=== PATIENT | male | born 1970 | race Caucasian/White ===

== ENCOUNTER 2022-02-28 16:52 | Inpatient (IN) ==
[2022-02-28] MEDS ORDERED: Melatonin 3 MG TABLET PO PRN (21:52)
[2022-02-28] MEDS ORDERED: Naloxone 0.4 MG/ML INJ IVP PRN (21:52)
[2022-02-28] MEDS ORDERED: 0.9 % Sodium Chloride 1,000 ML IVC SCH (22:45)
[2022-02-28] MEDS ORDERED: 0.9 % Sodium Chloride 500 ML IVC ONE (23:23)
[2022-02-28] MEDS: Piperacillin/Tazobactam 3.375 GM in 0.9 % Sodium Chloride Mini Bag 100 ML IVPB SCH (23:29)
[2022-03-01 05:28] LABS: White Blood Count 7.5 K/mcL (4.3-11.1)
[2022-03-01 05:29] LABS: Basophils % 0.1 %; Eosinophils % 0.3 %; Hematocrit 33.1 % (37.5-50.1); Hemoglobin 10.8 g/dL (12.9-16.9); Immature Granulocytes % 0.4 % (0-4); Lymphocytes # 0.9 K/mcL (0.6-4.6); Lymphocytes % 11.6 %; Mean Corpuscular HGB Conc 32.6 g/dL (31.6-35.5); Mean Corpuscular Hemoglobin 31.1 pg (28.0-33.3); Mean Corpuscular Volume 95.4 fL (83.0-100.0); Mean Platelet Volume 8.8 fL (9.4-12.4); Monocytes # 0.7 K/mcL (0.0-1.3); Monocytes % 9.7 %; Neutrophils # 5.9 K/mcL (1.6-8.9); Platelet Count 291 K/mcL (140-400); Red Blood Count 3.47 M/mcL (4.19-5.50); Red Cell Distribution Width 13.1 % (11.5-14.5); Segmented Neutrophils % 77.9 %
[2022-03-01] MEDS: Pantoprazole 40 MG VIAL IVP SCH (05:33)
[2022-03-01 05:53] LABS: Alanine Aminotransferase 7 Units/L (7-52); Albumin 3.2 g/dL (3.5-5.7); Albumin/Globulin Ratio 1.3 (1.1-2.2); Alkaline Phosphatase 59 Units/L (34-104); Aspartate Amino Transferase 10 Units/L (13-39); BUN/Creatinine Ratio 10 (6-26); Bilirubin,Total 0.5 mg/dL (0.3-1.0); Blood Urea Nitrogen 8 mg/dL (6-20); Calcium 7.8 mg/dL (8.6-10.3); Carbon Dioxide 21 mEq/L (23-29); Chloride 109 mEq/L (98-107); Globulin 2.5 g/dL (2.4-3.5); Glucose 89 mg/dL (70-105); Magnesium 1.9 mg/dL (1.6-2.6); Osmolality,Calculated 284 (280-300); Phosphorous 2.9 mg/dL (2.7-4.5); Potassium 3.6 mEq/L (3.5-5.1); Sodium 138 mEq/L (136-145); Total Protein 5.7 g/dL (6.4-8.9); eGFR For African Americans > 60 (> 60); eGFR For Non-African Americans > 60 (> 60)
[2022-03-01] MEDS: Piperacillin/Tazobactam 3.375 GM in 0.9 % Sodium Chloride Mini Bag 100 ML IVPB SCH ×3 (09:11→23:51)
[2022-03-01] MEDS: Ondansetron ODT 4 MG TAB.RAPDIS SL PRN (11:07)
[2022-03-02] MEDS: Pantoprazole 40 MG VIAL IVP SCH (05:01)
[2022-03-02 06:20] LABS: Basophils % 0.1 %; Eosinophils % 0.2 %; Hemoglobin 11.7 g/dL (12.9-16.9); Immature Granulocytes % 0.4 % (0-4); Lymphocytes # 0.9 K/mcL (0.6-4.6); Lymphocytes % 9.9 %; Mean Corpuscular HGB Conc 32.5 g/dL (31.6-35.5); Mean Corpuscular Volume 95.5 fL (83.0-100.0); Mean Platelet Volume 8.8 fL (9.4-12.4); Monocytes # 1.2 K/mcL (0.0-1.3); Monocytes % 12.2 %; Neutrophils # 7.3 K/mcL (1.6-8.9); Platelet Count 318 K/mcL (140-400); Red Blood Count 3.77 M/mcL (4.19-5.50); Red Cell Distribution Width 12.9 % (11.5-14.5); Segmented Neutrophils % 77.2 %; White Blood Count 9.4 K/mcL (4.3-11.1)
[2022-03-02 06:37] LABS: BUN/Creatinine Ratio 11 (6-26); Blood Urea Nitrogen 8 mg/dL (6-20); Calcium 8.5 mg/dL (8.6-10.3); Carbon Dioxide 22 mEq/L (23-29); Chloride 102 mEq/L (98-107); Glucose 82 mg/dL (70-105); Osmolality,Calculated 273 (280-300); Potassium 3.6 mEq/L (3.5-5.1); Sodium 133 mEq/L (136-145); eGFR For African Americans > 60 (> 60); eGFR For Non-African Americans > 60 (> 60)
[2022-03-02] MEDS: Piperacillin/Tazobactam 3.375 GM in 0.9 % Sodium Chloride Mini Bag 100 ML IVPB SCH ×2 (08:54→15:27)
[2022-03-02] MEDS: Ondansetron ODT 4 MG TAB.RAPDIS SL PRN (17:32)
[2022-03-03] MEDS: Piperacillin/Tazobactam 3.375 GM in 0.9 % Sodium Chloride Mini Bag 100 ML IVPB SCH (00:01)
[2022-03-03 03:26] VITALS: O2SAT 96
[2022-03-03] MEDS: Pantoprazole 40 MG VIAL IVP SCH (05:14)
[2022-03-03 07:49] VITALS: BP 114/72; PULSE 73; TEMP 97.4
== END 2022-03-03 10:30 | disposition home or self-care (01) | DRG 392 ==
LOC: 3ANU
PROVIDERS: ADMIT Student in an Organized Health Care Education/Training Program; ATTEND Student in an Organized Health Care Education/Training Program

== ENCOUNTER 2022-03-18 08:21 | Inpatient (IN) ==
[2022-03-18] MEDS ORDERED: Naloxone 0.4 MG/ML INJ IVP PRN (10:47)
[2022-03-18] MEDS: Ondansetron 4 MG/2 ML VIAL IVP PRN ×2 (11:16→17:04)
[2022-03-18] MEDS ORDERED: Metoclopramide 10 MG/2 ML VIAL IVP PRN ×2 (12:22→13:11)
[2022-03-18] MEDS ORDERED: *HR* HYDROmorphone (PF) 1 MG/ML SYRINGE IVP PRN (12:22)
[2022-03-18] MEDS: Metoprolol XL (24 HR) Succ 25 MG TAB.ER.24H PO SCH (14:13)
[2022-03-18] MEDS ORDERED: Fluconazole 400 MG/200 ML 400 MG/200 ML BAG IVPB SCH (16:00)
[2022-03-18] MEDS ORDERED: Morphine PCA 30 MG/ 30 ML 30 ML PCA.VIAL IVC PRN (16:22)
[2022-03-18] MEDS: 0.9 % Sodium Chloride 1,000 ML IVC SCH (17:06)
[2022-03-18] MEDS: Piperacillin/Tazobactam 3.375 GM in 0.9 % Sodium Chloride Mini Bag 100 ML IVPB SCH (17:25)
[2022-03-18] MEDS: Pantoprazole 40 MG VIAL IVP SCH (17:26)
[2022-03-18] MEDS: Gabapentin 300 MG CAPSULE PO SCH ×2 (17:39→21:03)
[2022-03-18] MEDS ORDERED: Ondansetron 4 MG/2 ML VIAL IVP ONE (20:31)
[2022-03-18] MEDS: Budesonide/Formoterol 80/4.5 1 PUFF INH IH SCH (22:33)
[2022-03-19] MEDS: 0.9 % Sodium Chloride 1,000 ML IVC SCH ×4 (00:36→23:29)
[2022-03-19] MEDS: Piperacillin/Tazobactam 3.375 GM in 0.9 % Sodium Chloride Mini Bag 100 ML IVPB SCH ×4 (00:36→23:31)
[2022-03-19] MEDS: Ondansetron 4 MG/2 ML VIAL IVP PRN (00:44)
[2022-03-19 02:26] LABS: Hematocrit 39.1 % (37.5-50.1); Hemoglobin 12.7 g/dL (12.9-16.9); Mean Corpuscular HGB Conc 32.5 g/dL (31.6-35.5); Mean Corpuscular Hemoglobin 30.8 pg (28.0-33.3); Mean Corpuscular Volume 94.7 fL (83.0-100.0); Mean Platelet Volume 9.2 fL (9.4-12.4); Platelet Count 374 K/mcL (140-400); Red Blood Count 4.13 M/mcL (4.19-5.50); Red Cell Distribution Width 14.1 % (11.5-14.5)
[2022-03-19 02:38] LABS: BUN/Creatinine Ratio 27 (6-26); Blood Urea Nitrogen 18 mg/dL (6-20); Carbon Dioxide 17 mEq/L (23-29); Chloride 109 mEq/L (98-107); Glucose 114 mg/dL (70-105); Magnesium 2.2 mg/dL (1.6-2.6); Osmolality,Calculated 289 (280-300); Potassium 4.2 mEq/L (3.5-5.1); Sodium 138 mEq/L (136-145); eGFR For African Americans > 60 (> 60); eGFR For Non-African Americans > 60 (> 60)
[2022-03-19 03:08] LABS: Calcium 8.5 mg/dL (8.6-10.3)
[2022-03-19] MEDS: Pantoprazole 40 MG VIAL IVP SCH ×2 (05:42→17:45)
[2022-03-19] MEDS: Budesonide/Formoterol 80/4.5 1 PUFF INH IH SCH ×2 (07:10→21:09)
[2022-03-19] MEDS ORDERED: Lidocaine HCL 4 ML Topical Solution (Laryng-O-Jet Kit Sterile Pak) TP ONE (07:18)
[2022-03-19] MEDS ORDERED: Ondansetron 4 MG/2 ML VIAL ONE (07:18)
[2022-03-19] MEDS ORDERED: *HR* Rocuronium Bromide 50 MG/5 ML VIAL ONE ×2 (07:18→10:04)
[2022-03-19] MEDS ORDERED: *HR* Succinylcholine 200 MG/10 ML VIAL IVP ONE (07:18)
[2022-03-19] MEDS ORDERED: *HR* Midazolam HCl 2 MG/2 ML VIAL ONE (07:19)
[2022-03-19] MEDS ORDERED: *HR* Propofol 200 MG/20 ML VIAL IVP ONE (07:19)
[2022-03-19] MEDS ORDERED: *HR* FentaNYL (PF) 100 MCG/2 ML VIAL ONE (07:19)
[2022-03-19] MEDS: Gabapentin 300 MG CAPSULE PO SCH ×3 (08:18→20:35)
[2022-03-19] MEDS: Metoprolol XL (24 HR) Succ 25 MG TAB.ER.24H PO SCH (08:18)
[2022-03-19] MEDS ORDERED: Albumin Human 5% 12.5 GM/250 ML IV.SOLN ONE (09:19)
[2022-03-19] MEDS ORDERED: Acetaminophen IV 1,000 MG/100 ML BAG IVPB ONE (09:24)
[2022-03-19] MEDS ORDERED: *HR* HYDROMORPHONE 2 MG/ML VIAL ONE (09:49)
[2022-03-19] MEDS ORDERED: Lidocaine -MPF 2% 2 ML VIAL ONE (10:04)
[2022-03-19] MEDS ORDERED: Sugammadex Sodium 200 MG/2 ML VIAL IV ONE (11:01)
[2022-03-19] MEDS: *HR* HYDROmorphone PF 0.5 MG/0.5 ML SYRINGE IVP PRN ×2 (12:37→12:47)
[2022-03-19] MEDS ORDERED: Naloxone 0.4 MG/ML INJ IVP PRN (14:02)
[2022-03-19] MEDS ORDERED: Morphine PCA 30 MG/ 30 ML 30 ML PCA.VIAL IVC PRN (14:02)
[2022-03-19] MEDS ORDERED: Metoclopramide 10 MG/2 ML VIAL IVP PRN (14:02)
[2022-03-19] MEDS ORDERED: Ondansetron 4 MG/2 ML VIAL IVP PRN (14:02)
[2022-03-19] MEDS: Fluconazole 400 MG/200 ML 400 MG/200 ML BAG IVPB SCH (15:03)
[2022-03-19] MEDS: *HR* Heparin 5,000 UNIT/ML VIAL SQ SCH (17:45)
[2022-03-19] MEDS: Ketorolac 30 MG/ML VIAL IVP SCH ×2 (17:45→23:30)
[2022-03-20 01:49] LABS: Hematocrit 33.7 % (37.5-50.1); Immature Granulocytes % 0.3 % (0-4); Lymphocytes # 0.4 K/mcL (0.6-4.6); Lymphocytes % 4.1 %; Mean Corpuscular HGB Conc 31.8 g/dL (31.6-35.5); Mean Corpuscular Hemoglobin 30.8 pg (28.0-33.3); Mean Corpuscular Volume 97.1 fL (83.0-100.0); Mean Platelet Volume 9.3 fL (9.4-12.4); Monocytes # 0.7 K/mcL (0.0-1.3); Monocytes % 7.4 %; Neutrophils # 8.6 K/mcL (1.6-8.9); Platelet Count 268 K/mcL (140-400); Red Blood Count 3.47 M/mcL (4.19-5.50); Red Cell Distribution Width 14.2 % (11.5-14.5); Segmented Neutrophils % 88.2 %; White Blood Count 9.8 K/mcL (4.3-11.1)
[2022-03-20 01:50] LABS: Hemoglobin 10.7 g/dL (12.9-16.9)
[2022-03-20 02:11] LABS: BUN/Creatinine Ratio 19 (6-26); Blood Urea Nitrogen 11 mg/dL (6-20); Calcium 7.8 mg/dL (8.6-10.3); Carbon Dioxide 21 mEq/L (23-29); Chloride 108 mEq/L (98-107); Glucose 146 mg/dL (70-105); Osmolality,Calculated 288 (280-300); Potassium 4.2 mEq/L (3.5-5.1); Sodium 138 mEq/L (136-145); eGFR For African Americans > 60 (> 60); eGFR For Non-African Americans > 60 (> 60)
[2022-03-20] MEDS: Pantoprazole 40 MG VIAL IVP SCH ×2 (05:26→17:55)
[2022-03-20] MEDS: Ketorolac 30 MG/ML VIAL IVP SCH ×2 (05:27→12:47)
[2022-03-20] MEDS: *HR* Heparin 5,000 UNIT/ML VIAL SQ SCH ×2 (05:28→17:54)
[2022-03-20] MEDS: Budesonide/Formoterol 80/4.5 1 PUFF INH IH SCH ×2 (07:17→20:37)
[2022-03-20] MEDS: Metoprolol XL (24 HR) Succ 25 MG TAB.ER.24H PO SCH (07:52)
[2022-03-20] MEDS: Gabapentin 300 MG CAPSULE PO SCH ×3 (07:52→20:09)
[2022-03-20] MEDS: Piperacillin/Tazobactam 3.375 GM in 0.9 % Sodium Chloride Mini Bag 100 ML IVPB SCH ×3 (07:53→23:08)
[2022-03-20] MEDS: 0.9 % Sodium Chloride 1,000 ML IVC SCH ×3 (07:53→23:18)
[2022-03-20] MEDS: Acetaminophen IV 1,000 MG/100 ML BAG IVPB SCH ×2 (12:47→18:01)
[2022-03-20] MEDS: Fluconazole 400 MG/200 ML 400 MG/200 ML BAG IVPB SCH (15:42)
[2022-03-20] MEDS ORDERED: Simethicone 80 MG TAB.CHEW PO ONE (17:18)
[2022-03-21] MEDS: Acetaminophen IV 1,000 MG/100 ML BAG IVPB SCH ×4 (00:23→17:27)
[2022-03-21] MEDS: *HR* Heparin 5,000 UNIT/ML VIAL SQ SCH ×2 (05:57→10:52)
[2022-03-21] MEDS: Pantoprazole 40 MG VIAL IVP SCH (05:57)
[2022-03-21] MEDS: Budesonide/Formoterol 80/4.5 1 PUFF INH IH SCH ×2 (07:53→22:47)
[2022-03-21] MEDS: Piperacillin/Tazobactam 3.375 GM in 0.9 % Sodium Chloride Mini Bag 100 ML IVPB SCH ×2 (08:00→15:56)
[2022-03-21] MEDS: Gabapentin 300 MG CAPSULE PO SCH ×3 (08:01→21:11)
[2022-03-21] MEDS: Metoprolol XL (24 HR) Succ 25 MG TAB.ER.24H PO SCH (08:01)
[2022-03-21] MEDS: 0.9 % Sodium Chloride 1,000 ML IVC SCH ×3 (08:02→22:23)
[2022-03-21 08:59] LABS: Basophils % 0.1 %; Hematocrit 32.3 % (37.5-50.1); Hemoglobin 9.9 g/dL (12.9-16.9); Immature Granulocytes % 0.9 % (0-4); Lymphocytes # 0.7 K/mcL (0.6-4.6); Lymphocytes % 9.3 %; Mean Corpuscular HGB Conc 30.7 g/dL (31.6-35.5); Mean Corpuscular Hemoglobin 31.1 pg (28.0-33.3); Mean Corpuscular Volume 101.6 fL (83.0-100.0); Mean Platelet Volume 9.3 fL (9.4-12.4); Monocytes # 0.7 K/mcL (0.0-1.3); Monocytes % 8.9 %; Neutrophils # 6.1 K/mcL (1.6-8.9); Platelet Count 244 K/mcL (140-400); Red Blood Count 3.18 M/mcL (4.19-5.50); Red Cell Distribution Width 14.2 % (11.5-14.5); Segmented Neutrophils % 80.8 %; White Blood Count 7.5 K/mcL (4.3-11.1)
[2022-03-21 09:41] LABS: BUN/Creatinine Ratio 20 (6-26); Blood Urea Nitrogen 13 mg/dL (6-20); Calcium 7.8 mg/dL (8.6-10.3); Carbon Dioxide 16 mEq/L (23-29); Chloride 112 mEq/L (98-107); Glucose 97 mg/dL (70-105); Osmolality,Calculated 288 (280-300); Potassium 4.1 mEq/L (3.5-5.1); Sodium 139 mEq/L (136-145); eGFR For African Americans > 60 (> 60); eGFR For Non-African Americans > 60 (> 60)
[2022-03-21] MEDS ORDERED: Lidocaine -MPF 2% 2 ML VIAL ONE (10:09)
[2022-03-21] MEDS: Ketorolac 30 MG/ML VIAL IVP SCH ×2 (11:36→17:27)
[2022-03-21] MEDS: Fluconazole 400 MG/200 ML 400 MG/200 ML BAG IVPB SCH (15:58)
[2022-03-21] MEDS: methocarbamoL 500 MG TABLET PO SCH (16:00)
[2022-03-21] MEDS ORDERED: Chloraseptic Spray 177 ML BOTTLE MM PRN (16:11)
[2022-03-22] MEDS: Acetaminophen IV 1,000 MG/100 ML BAG IVPB SCH ×4 (00:13→18:21)
[2022-03-22] MEDS: Ketorolac 30 MG/ML VIAL IVP SCH ×4 (00:14→18:20)
[2022-03-22] MEDS: methocarbamoL 500 MG TABLET PO SCH ×3 (00:14→16:27)
[2022-03-22] MEDS: Piperacillin/Tazobactam 3.375 GM in 0.9 % Sodium Chloride Mini Bag 100 ML IVPB SCH ×3 (00:15→16:27)
[2022-03-22] MEDS ORDERED: D5% in Water 1,000 ML IVC PRN (00:20)
[2022-03-22] MEDS ORDERED: Dextrose Gel 15 GM/37.5 ML TUBE PO PRN ×2 (00:20)
[2022-03-22] MEDS: *HR* Dextrose 50 % in Water (Syg) 50 ML SYRINGE IVP PRN ×2 (00:31→06:34)
[2022-03-22] MEDS: 0.9 % Sodium Chloride 1,000 ML IVC SCH ×2 (04:41→08:15)
[2022-03-22] MEDS: *HR* Heparin 5,000 UNIT/ML VIAL SQ SCH ×2 (05:33→18:21)
[2022-03-22] MEDS: Budesonide/Formoterol 80/4.5 1 PUFF INH IH SCH ×2 (07:52→21:09)
[2022-03-22] MEDS: Metoprolol XL (24 HR) Succ 25 MG TAB.ER.24H PO SCH (08:11)
[2022-03-22] MEDS: Gabapentin 300 MG CAPSULE PO SCH ×3 (08:11→20:56)
[2022-03-22] MEDS: Pantoprazole 40 MG VIAL IVP SCH (08:12)
[2022-03-22 09:42] LABS: Basophils % 0.2 %; Eosinophils % 0.5 %; Hematocrit 30.8 % (37.5-50.1); Hemoglobin 9.7 g/dL (12.9-16.9); Immature Granulocytes % 0.5 % (0-4); Lymphocytes # 0.9 K/mcL (0.6-4.6); Lymphocytes % 14.8 %; Mean Corpuscular HGB Conc 31.5 g/dL (31.6-35.5); Mean Corpuscular Hemoglobin 30.2 pg (28.0-33.3); Mean Platelet Volume 9.1 fL (9.4-12.4); Monocytes # 0.3 K/mcL (0.0-1.3); Platelet Count 302 K/mcL (140-400); Red Blood Count 3.21 M/mcL (4.19-5.50); Red Cell Distribution Width 14.1 % (11.5-14.5); White Blood Count 6.3 K/mcL (4.3-11.1)
[2022-03-22 09:55] LABS: BUN/Creatinine Ratio 17 (6-26); Blood Urea Nitrogen 10 mg/dL (6-20); Carbon Dioxide 22 mEq/L (23-29); Chloride 110 mEq/L (98-107); Glucose 91 mg/dL (70-105); Osmolality,Calculated 287 (280-300); Potassium 3.6 mEq/L (3.5-5.1); Sodium 139 mEq/L (136-145); eGFR For African Americans > 60 (> 60); eGFR For Non-African Americans > 60 (> 60)
[2022-03-22] MEDS ORDERED: 0.9 % Sodium Chloride 1,000 ML IVC SCH (14:45)
[2022-03-22] MEDS: Fluconazole 400 MG/200 ML 400 MG/200 ML BAG IVPB SCH (16:27)
[2022-03-23] MEDS: Ketorolac 30 MG/ML VIAL IVP SCH ×3 (00:27→13:34)
[2022-03-23] MEDS: methocarbamoL 500 MG TABLET PO SCH ×2 (00:28→08:08)
[2022-03-23] MEDS: Acetaminophen IV 1,000 MG/100 ML BAG IVPB SCH ×3 (00:29→13:34)
[2022-03-23] MEDS: Piperacillin/Tazobactam 3.375 GM in 0.9 % Sodium Chloride Mini Bag 100 ML IVPB SCH ×2 (00:29→08:06)
[2022-03-23 06:02] LABS: Basophils % 0.1 %; Eosinophils # 0.1 K/mcL (0.0-0.6); Hematocrit 30.5 % (37.5-50.1); Hemoglobin 9.7 g/dL (12.9-16.9); Immature Granulocytes % 0.8 % (0-4); Lymphocytes # 0.8 K/mcL (0.6-4.6); Mean Corpuscular HGB Conc 31.8 g/dL (31.6-35.5); Mean Corpuscular Hemoglobin 30.4 pg (28.0-33.3); Mean Corpuscular Volume 95.6 fL (83.0-100.0); Mean Platelet Volume 9.1 fL (9.4-12.4); Monocytes # 0.3 K/mcL (0.0-1.3); Monocytes % 3.5 %; Neutrophils # 6.6 K/mcL (1.6-8.9); Platelet Count 280 K/mcL (140-400); Red Blood Count 3.19 M/mcL (4.19-5.50); Red Cell Distribution Width 13.9 % (11.5-14.5); Segmented Neutrophils % 84.6 %; White Blood Count 7.8 K/mcL (4.3-11.1)
[2022-03-23] MEDS: *HR* Heparin 5,000 UNIT/ML VIAL SQ SCH (06:40)
[2022-03-23 06:47] LABS: BUN/Creatinine Ratio 11 (6-26); Blood Urea Nitrogen 6 mg/dL (6-20); Calcium 7.9 mg/dL (8.6-10.3); Carbon Dioxide 23 mEq/L (23-29); Chloride 105 mEq/L (98-107); Glucose 73 mg/dL (70-105); Osmolality,Calculated 282 (280-300); Potassium 3.5 mEq/L (3.5-5.1); Sodium 138 mEq/L (136-145); eGFR For African Americans > 60 (> 60); eGFR For Non-African Americans > 60 (> 60)
[2022-03-23] MEDS: Budesonide/Formoterol 80/4.5 1 PUFF INH IH SCH (07:40)
[2022-03-23] MEDS: Pantoprazole 40 MG VIAL IVP SCH (08:07)
[2022-03-23] MEDS: Gabapentin 300 MG CAPSULE PO SCH (08:08)
[2022-03-23] MEDS: Metoprolol XL (24 HR) Succ 25 MG TAB.ER.24H PO SCH (08:08)
[2022-03-23 12:08] VITALS: BP 138/82; PULSE 82; TEMP 97.9; O2SAT 96
== END 2022-03-23 14:44 | disposition home or self-care (01) | DRG 330 ==
LOC: 3BNU → 3ANU 03-19 13:29 → SUATTDRO 03-19 17:54
PROVIDERS: ADMIT Internal Medicine; ATTEND General Practice
PROC: ENDOEDS (2022-03-21 12:00)